=== PATIENT | female | born 1965 | race Caucasian/White ===

== ENCOUNTER → 2019-11-09 12:50 | Outpatient (CLI) | payer MEDICARE, MEDICAID, SELFPAY ==
--- NOTE | 2019-11-09 | DI.RAD.S_ITS ---
PROCEDURE: XR SHOULDER LT MIN 2V INDICATIONS: XR PAIN IN SHOULDER/ HIP TECHNIQUE: 3 views of the shoulder were acquired. COMPARISON: None. FINDINGS: Bones: No fractures or dislocations. No suspicious bony lesions. Visualized ribs appear intact. Soft tissues: No suspicious soft tissue calcifications. IMPRESSION: No trauma found, source of current pain is not seen. Dictated by: Jaime Fraser M.D. on 11/09/2019 at 14:31 Approved by: Jaime Fraser M.D. on 11/09/2019 at 14:31
--- NOTE | 2019-11-09 | DI.RAD.S_ITS ---
PROCEDURE: XR HIP W PEL IF DONE RT 2V COMPARISON: [facility], [place], XR HIP W PEL IF DONE LT 2V, 11/09/2019, 13:12. INDICATIONS: XR PAIN IN SHOULDER/ HIP FINDINGS: Single frontal view of right hip with reference to the pelvis and left hip plain films from today show no trauma, and no evidence of joint effusion or loose body at the right hip. IMPRESSION: Normal right hip. Dictated by: Jaime Frsaer M.D. on 11/09/2019 at 14:25 Approved by: Jaime Fraser M.D. on 11/09/2019 at 14:26
--- NOTE | 2019-11-09 | DI.RAD.S_ITS ---
PROCEDURE: XR SHOULDER RT MIN 2V INDICATIONS: XR PAIN IN SHOULDER/ HIP TECHNIQUE: 3 views of the shoulder were acquired. COMPARISON: None. FINDINGS: Bones: No fractures or dislocations. No suspicious bony lesions. Visualized ribs appear intact. Soft tissues: No suspicious soft tissue calcifications. IMPRESSION: No trauma found, source of pain is not seen. A mild degree of a.c. joint osteoarthritis is incidentally noted. Dictated by: Jaime Fraser M.D. on 11/09/2019 at 14:27 Approved by: Jaime Fraser M.D. on 11/09/2019 at 14:31
--- NOTE | 2019-11-09 | DI.RAD.S_ITS ---
PROCEDURE: XR HIP W PEL IF DONE LT 2V INDICATIONS: XR PAIN IN SHOULDER/ HIP TECHNIQUE: AP pelvis with lateral view(s) of the right hip(s). COMPARISON: None. FINDINGS: Bones: No fractures or dislocations. Pelvic ring appears intact. No suspicious bony lesions. Soft tissues: The visualized bowel gas pattern is normal. No suspicious soft tissue calcifications. IMPRESSION: No trauma found, symmetric minimal degenerative hip joint osteoarthritis is present. Source of asymmetric left-sided predominant pain is not identified. Dictated by: Jaime Fraser M.D. on 11/09/2019 at 14:45 Approved by: Jaime Fraser M.D. on 11/09/2019 at 14:46
--- NOTE | 2019-11-09 | DI.MRI.S_ITS ---
PROCEDURE: MR CERVICAL SPINE WO CON INDICATIONS: Cervicalgia TECHNIQUE: Noncontrast sagittal T1 spin echo and T2 fast spin echo, sagittal STIR, foraminal oblique sagittal T2 fast spin echo, and axial gradient echo or T2 fast spin echo through the cervical spine. COMPARISON: Located Within [facility], , C-SPINE WITHOUT CONTRAST, 08/18/2017, 13:22. FINDINGS: Image quality: Excellent. Alignment and Curvature: There is trace anterolisthesis of C2 on C3, C4 and C5, trace retrolisthesis of C3 on C4, C5-C6, C6 on C7. Bone Marrow: Marrow demonstrates normal overall signal. Spinal Cord: Visualized spinal cord has normal size and signal. No cerebellar tonsillar herniation. Paraspinous Soft Tissues: No paravertebral masses. Prevertebral soft tissues are normal in thickness. Discs: Moderate to severe desiccation is present throughout the cervical spine most severe at C5-6 and C6-7. C2-C3: No disc bulge, spinal stenosis or foraminal narrowing.No interval change. C3-C4: Mild disc bulge with minimal canal narrowing. Moderate bilateral foraminal narrowing, unchanged. Uncovertebral hypertrophy is present. C4-C5: Mild disc bulge with minimal canal narrowing. No neural foraminal narrowing. No interval change. Uncovertebral hypertrophy is present. C5-C6: Mild disc bulge with moderate spinal stenosis. Moderate to severe right and mild left foraminal narrowing with uncovertebral hypertrophy. No interval change. C6-C7: Mild disc bulge with moderate spinal stenosis. Mild bilateral foraminal narrowing with uncovertebral hypertrophy. No interval change. C7-T1: No disc bulge, spinal stenosis or foraminal narrowing. No interval change. IMPRESSION: 1. Multilevel degenerative changes, relatively stable compared to prior exam. 2. Multilevel spinal stenosis most severe at C5-6 and C6-7 secondary to disc bulge. 3. Multilevel foraminal narrowing most severe at C5-6 secondary to uncovertebral hypertrophy. Dictated by: Mariely Mancilla M.D. on 11/09/2019 at 17:10 Approved by: Mariely Mancilla M.D. on 11/09/2019 at 17:14
== END ==
PROVIDERS: Referring Provider Acupuncturist; Visit Provider Acupuncturist
DX: M25.551 Pain in right hip (principal); M25.552 Pain in left hip; M25.511 Pain in right shoulder; M25.512 Pain in left shoulder; M47.812 Spondylosis without myelopathy or radiculopathy, cervical region; M48.02 Spinal stenosis, cervical region; M50.21 Other cervical disc displacement, high cervical region; M19.011 Primary osteoarthritis, right shoulder
CPT/HCPCS: 72141; 73030; 73502

== ENCOUNTER → 2020-01-27 08:57 | Outpatient (CLI) | payer MEDICARE, MEDICAID, SELFPAY ==
--- NOTE | 2020-01-27 | DI.MRI.S_ITS ---
PROCEDURE: MR LUMBAR SPINE WO CON INDICATIONS: low back pain TECHNIQUE: Noncontrast sagittal T1 spin echo and T2 fast echo, sagittal STIR, axial T1 and T2 fast spin echo through the lumbar spine. In cases with scoliosis, additional coronal T2 fast spin echo may be performed. COMPARISON: [facility], MR, L-SPINE WITHOUT CONTRAST, 05/15/2017, 14:10. [facility], MR, L-SPINE WITHOUT CONTRAST, 11/13/2012, 15:16. FINDINGS: Image quality: Excellent. Alignment and Curvature: There is minimal retrolisthesis seen at the L5-S1 level. Bone Marrow: Marrow is of normal overall signal. No acute vertebral body compression fractures. Spinal Cord: Conus medullaris terminates at the L1 level. Visualized cord demonstrates normal signal and size. Paraspinous Soft Tissues: No paravertebral masses. T12-L1: Normal appearance. L1-L2: Normal appearance. L2-L3: No significant abnormality is seen. L3-L4: Mild loss of disc height is seen. Loss of disc signal is seen. Moderate disc bulge is seen, which is eccentric to the left. There is at least moderate facet hypertrophy seen. There is mild to moderate bilateral neural foraminal narrowing seen. Moderate central canal narrowing is seen. The degree of central canal narrowing has progressed compared to 2017. L4-L5: Moderate loss of disc height is seen. Loss of disc signal is seen. Reactive marrow endplate changes are seen which are hypointense on T1-weighted imaging and hyperintense on T2 weighted imaging, which is most consistent with edema (Modic type I changes). Moderate to prominent facet hypertrophy is seen. There is moderate to severe bilateral neural foraminal narrowing seen, right worse than left. There is a degree of compression seen upon the exiting nerve roots. Moderate to severe central canal narrowing is seen. These imaging findings have progressed compared to the prior study. L5-S1: There is a moderate loss of disc height and disc signal seen. Reactive marrow endplate changes are seen, which are hyperintense on T1-weighted and T2-weighted imaging and most consistent with fatty metaplasia (Modic type II changes). There is at least moderate disc bulge seen. A moderate facet hypertrophy is seen. There is moderate bilateral neural foraminal narrowing seen, left worse than right. There is a degree of compression seen upon the exiting left L5 nerve root. No significant central canal narrowing is seen. These imaging findings have progressed compared to the prior study. IMPRESSION: Lower lumbar spine degenerative changes are seen, which have progressed compared to 2017. Dictated by: Abdoul Noble M.D. on 01/27/2020 at 9:17 Approved by: Abdoul Noble M.D. on 01/27/2020 at 9:23
== END ==
PROVIDERS: Referring Provider Acupuncturist; Visit Provider Acupuncturist
DX: M54.5 Low back pain (principal); M47.816 Spondylosis without myelopathy or radiculopathy, lumbar region; M47.817 Spondylosis without myelopathy or radiculopathy, lumbosacral region
CPT/HCPCS: 72148

== ENCOUNTER 2023-05-27 16:43 | Emergency (ER) | payer MEDICARE, MEDICAID, SELFPAY ==
[2023-05-27 16:59] VITALS: BP 125/79; PULSE 75; RESP 15; TEMP 36.6; O2SAT 99; BMI 25.3
== END 2023-05-27 20:39 | disposition left against medical advice (07) ==
PROVIDERS: Emergency Provider Emergency Medicine
DX: M25.562 Pain in left knee (principal)
CPT/HCPCS: 99281

== ENCOUNTER 2023-05-30 10:44 | Emergency (ER) | payer MEDICARE, MEDICAID, SELFPAY ==
[2023-05-30 10:51] VITALS: BP 174/7; PULSE 86; RESP 14; TEMP 36.3; O2SAT 99; BMI 25.3
--- NOTE | 2023-05-30 10:57 | DI.US.S_ITS ---
PROCEDURE: US PERIPH VENOUS LOW EXTREM LT INDICATIONS: PAIN SWELLING TECHNIQUE: Real-time imaging, as well as color and pulse Doppler interrogation, were performed of the lower extremity deep veins from the inguinal ligament to the popliteal fossa, with documentation of the visualized calf veins. COMPARISON: None. FINDINGS: The common femoral, femoral, popliteal, and the visualized calf veins are normally compressible, and free of intraluminal thrombus. Color and pulse Doppler demonstrate normal phasic intraluminal flow. There is normal augmentation response to distal compression maneuver. IMPRESSION: No findings of lower extremity deep venous thrombosis. Dictated by: Mir Le M.D. on 05/30/2023 at 12:26 Approved by: Mir Le M.D. on 05/30/2023 at 12:27
--- NOTE | 2023-05-30 11:09 | ED_ITS ---
HPI - Extremity Injury (Lower) <Joanne Banuelos, [facility] - Last Filed: 05/30/23 13:30> General Chief Complaint: Extremity Injury, Lower Stated Complaint: L/lower leg swelling and pain Time Seen by Provider: 05/30/23 10:57 Source: patient Mode of arrival: Ambulatory History of Present Illness HPI Narrative: This is a 58-year-old female with history of TIAs who is not currently anticoagulated who presents to the emergency department with left-sided swelling and pain which started in the left calf and behind her knee and has progressed down her leg with swelling around her ankle and lower leg. She has been icing and elevating to help with pain, is concerned about a blood clot. Denies any open wound. Sees primary care in [place]. Denies fever chills. Endorses it has been warm and painful to touch. Denies any insect bites or recent yard work. States that her pain started 3 weeks ago and she has been elevating this frequently. States that her prior ?clots? were in her brain and related to TIAs. States that she took Xarelto for many years and stopped taking after she took herself off a couple of years ago. Denies any history of hypertension or cardiac problems. States that her current medication list is updated, does not take baby aspirin. She denies any shortness of breath, chest pain, dizziness, vision changes, or other symptom other than ongoing left knee pain without improvement of her lower left leg edema. Related Data Home Medications Medication Instructions Recorded Confirmed albuterol sulfate 90 mcg/actuation 2 puff inhalation Q4H PRN 05/30/23 05/30/23 aerosol inhaler (Ventolin HFA) wheezing/ sob duloxetine 60 mg capsule,delayed 120 mg PO DAILY 05/30/23 05/30/23 release gabapentin 300 mg capsule 300 mg PO 3XD 05/30/23 05/30/23 olanzapine 10 mg tablet 10 mg PO BEDTIME 05/30/23 05/30/23 prazosin 2 mg capsule 2 mg PO ONCE PM 05/30/23 05/30/23 Allergies Allergy/AdvReac Type Severity Reaction Status Date / Time codeine Allergy Verified 05/30/23 10:55 cyclobenzaprine Allergy Verified 05/30/23 10:55 [From Flexeril] diphenhydramine Allergy Verified 05/30/23 10:55 [From Benadryl] Penicillins Allergy Verified 05/30/23 10:55 Review of Systems <YULISSA Malone - Last Filed: 05/30/23 13:30> Review of Systems ROS Unobtainable: All systems reviewed & are unremarkable except as noted in HPI and below Patient History <YULISSA Malone - Last Filed: 05/30/23 13:30> Medical History TIA (transient ischemic attack) Social History Smoking Status: Current every day smoker Smoking Status: Current every day smoker alcohol intake frequency: other Substance Use Type: does not use Exam <YULISSA Malone - Last Filed: 05/30/23 13:30> Narrative Exam Narrative: Reviewed vitals signs and nursing notes. General: Pleasant, sitting upright, in no acute distress, well groomed, afebrile HEENT: symmetrical facial expressions, moist mucous membranes, neck is supple CV: regular rate and rhythm, warm extremities, pulses 2+ x4 extremities with brisk cap refill Respiratory: normal work of breathing, without tachypnea or hypoxia. MSK: moves all extremities, no weakness, normal tone, ambulatory without deficit, left lower leg edema, no tenderness over the gastrocnemius medially, no erythema or warmth, 1+ pitting edema, circumferential near ankle but not total lower leg, prominent varicose vein Skin: brisk capillary refill, without rash or wound Neuro: clear speech and normal cognition, A&O x3, GCS 15, no focal motor or sensation deficits Initial Vital Signs Initial Vital Signs: Vital Signs Temperature 97.4 F L 05/30/23 10:51 Pulse Rate 86 05/30/23 10:51 Respiratory Rate 14 05/30/23 10:51 Blood Pressure 174/7 H 05/30/23 10:51 Pulse Oximetry 99 05/30/23 10:51 Oxygen Delivery Method Room Air 05/30/23 10:51 <Thom Medina DO - Last Filed: 05/30/23 17:40> Initial Vital Signs Initial Vital Signs: Vital Signs Temperature 97.4 F L 05/30/23 10:51 Pulse Rate 86 05/30/23 10:51 Respiratory Rate 14 05/30/23 10:51 Blood Pressure 174/7 H 05/30/23 10:51 Pulse Oximetry 99 05/30/23 10:51 Oxygen Delivery Method Room Air 05/30/23 10:51 Scores <YULISSA Malone - Last Filed: 05/30/23 13:30> Dana Criteria for DVT Active Cancer (Treatment within 6 months): No Bedridden recently >3 days or major surgery within 4 weeks: No Calf Swelling >3cm compared to other leg: Yes Collateral (nonvericose) superficial veins present: Yes Entire leg swollen: No Localized tenderness along the deep vein system: No Pitting edema, confined to symtomatic leg: Yes Paralysis, paresis, or recent plaster immobilization of ext: No Previously documented DVT: No Alternative dx to DVT as likely or more likely: No Dana criteria for DVT: 3 <Thom Medina DO - Last Filed: 05/30/23 17:40> Dana Criteria for DVT Wells' criteria for DVT: 3 Course <YULISSA Malone - Last Filed: 05/30/23 13:30> Orders Ordered: ED Orders 05/30/23 10:57 US periph venous low extrem lt Stat 05/30/23 11:59 XR knee LT 3V Stat Discontinued Medications Hydrocodone Bitart/Acetaminophen (Hydrocodone/Acet 5/325 Tablet) 1 tab PO NOW ONE Stop: 05/30/23 12:31 Last Admin: 05/30/23 12:40 Dose: 1 tab Documented By: RLS Vital Signs Vital signs: Vital Signs - 8 hr 05/30/23 10:51 05/30/23 13:19 Temperature 97.4 F L Pulse Rate 86 75 Respiratory Rate 14 18 Blood Pressure 174/7 H 113/70 Pulse Oximetry 99 98 Oxygen Delivery Method Room Air Room Air <Thom Medina DO - Last Filed: 05/30/23 17:40> Orders Ordered: ED Orders 05/30/23 10:57 US periph venous low extrem lt Stat 05/30/23 11:59 XR knee LT 3V Stat Discontinued Medications Hydrocodone Bitart/Acetaminophen (Hydrocodone/Acet 5/325 Tablet) 1 tab PO NOW ONE Stop: 05/30/23 12:31 Last Admin: 05/30/23 12:40 Dose: 1 tab Documented By: RLS Vital Signs Vital signs: Vital Signs - 8 hr 05/30/23 10:51 05/30/23 13:19 Temperature 97.4 F L Pulse Rate 86 75 Respiratory Rate 14 18 Blood Pressure 174/7 H 113/70 Pulse Oximetry 99 98 Oxygen Delivery Method Room Air Room Air MDM - Extremity Injury (Lower) <Joanne Banuelos, [facility] - Last Filed: 05/30/23 13:30> Imaging Data US - DVT: Radiologist's Impression: [address] [address] Ultrasound Report Signed Patient: Stephany Tyler MR#: [id number] : 1965 Acct:[id number] Age/Sex: 58 / F Date of Service: 05/30/23 Loc: ED Accession Number: [id number] ?? Procedure: US periph venous low extrem lt Ordering Provider: Thom Medina D.O. PROCEDURE:? US PERIPH VENOUS LOW EXTREM LT ? INDICATIONS:? PAIN SWELLING ? TECHNIQUE:? Real-time imaging, as well as color and pulse Doppler interrogation, were performed of the lower extremity deep veins from the inguinal ligament to the popliteal fossa, with documentation of the visualized calf veins.? ? COMPARISON:? None. ? FINDINGS:? The common femoral, femoral, popliteal, and the visualized calf veins are normally compressible, and free of intraluminal thrombus.? Color and pulse Doppler demonstrate normal phasic intraluminal flow.? There is normal augmentation response to distal compression maneuver.? ? ? IMPRESSION:? No findings of lower extremity deep venous thrombosis. ? ? Dictated by: Mir Le M.D. on 05/30/2023 at 12:26 ? ? Approved by: Mir Le M.D. on 05/30/2023 at 12:27 ? Extremity x-ray #1: Radiologist's Impression: [address] [address] XRay Report Signed Patient: Stephany Tyler MR#: [id number] : 1965 Acct:[id number] Age/Sex: 58 / F Date of Service: 05/30/23 Loc: ED Accession Number: [id number] ?? Procedure: XR knee LT 3V Ordering Provider: Joanne Banuelos PROCEDURE:? XR KNEE LT 3V ? INDICATIONS:? pain ? TECHNIQUE:? 3 views of the knee were acquired.? ? COMPARISON:? None. ? FINDINGS:? ? Bones:? No fractures or dislocations.? No suspicious bony lesions.? ? Soft tissues:? No joint effusion.? No suspicious soft tissue calcifications.? ? ? IMPRESSION:? Normal examination, source of knee pain is not identified. ? ? Dictated by: Jaime Fraser M.D. on 05/30/2023 at 13:06 ? ? Approved by: Jaime Frasre M.D. on 05/30/2023 at 13:07 ? MDM Narrative Medical decision making narrative: Chief Complaint: Left knee pain lower extremity edema Multiple etiologies for patient's complaint considered including, but not limited to: Osteoarthritis, DVT, cellulitis, gout, superficial vein thrombosis, Campbell cyst I have independently reviewed the patient's vital signs and nursing notes as well as prior records if available. Plan: Patient denies any for pain medication, ultrasound for DVT and x-ray for evaluation of osteoarthritis and knee effusion Patient is low risk Wells DVT although reported history of anticoagulant use, patient's ultrasound is negative for DVT, x-ray left knee shows no acute abnormalities, normal exam without joint effusion. Since patient's pain is worse from sitting to standing, with walking, and she has anterior knee pain which radiates throughout the whole joint, this is most likely related to arthritis as there are are no skin changes. Ultrasound DVT was negative, no erythema or skin tenderness, cellulitis is unlikely. No history of gout, patient does not have any range of motion deficits or sensation changes. Patient is recommended to follow up with her PCP for referral to physical therapy and for outpatient MRI as indicated. She was given contact information for [facility] Orthopedics to follow with them for further evaluation if pain is persistent. Social considerations that may affect disposition: none Questions are addressed and there is agreement with the plan and for follow-up. I consulted with the ED attending physician Dr. Medina as needed for higher level of care considerations and they were available for discussion and recommendations regarding plan of care and diagnostic testing. Patient is appropriate for outpatient management. Discharge Plan Departure Patient Disposition: Home Clinical Impression: Acute knee pain Qualifiers: Laterality: left Qualified Code(s): M25.562 - Pain in left knee Instructions: DI for Knee Pain Activity Restrictions/Additional Instructions: *You have been diagnosed with negative ultrasound for DVT and your x-ray does not show any significant abnormalities. There is no DVT in the left leg, and knee pain can be evaluated further at [facility] or with your primary care provider. Please follow-up and ask for a referral to physical therapy and for outpatient imaging which may include an MRI if your pain continues. Continue taking ibuprofen and Tylenol as needed for your pain. Ice it and elevate, these tests do not give any concerning findings about mobility so try to avoid strenuous activity or jarring motions but practice gentle range of motion throughout the day. I hope this starts getting better soon. *What to do: *Please continue to take your regular medications as directed. [ ] New medication prescriptions sent to your pharmacy: [ ] [ ] New medication written as a paper prescription [ x] No new medications given *Please call and schedule follow up with your primary care provider in 2-3 days, at least for an update. Let them know you were seen in the Emergency Department for the above problem. We will electronically transmit a record of today's note if your PCP or specialist is in our system. *If you do not have a primary care provider please contact [phone] to establish care with one of the [facility] primary care providers. *Return to the Emergency Department for worsening symptoms, inability to keep liquids down, fever greater than 101F, chills, or other concerning symptom. Prescriptions: No Action olanzapine 10 mg tablet 10 mg PO BEDTIME gabapentin 300 mg capsule 300 mg PO 3XD albuterol sulfate [Ventolin HFA] 90 mcg/actuation HFA aerosol inhaler 2 puff INHALATION Q4H PRN (Reason: wheezing/ sob) prazosin 2 mg capsule 2 mg PO ONCE PM duloxetine 60 mg capsule,delayed release(DR/EC) 120 mg PO DAILY Referrals: [facility] [Provider Group] [facility] [Outside] Stand Alone Forms: Patient Portal/API <Thom Medina DO - Last Filed: 05/30/23 17:40> [facility] ED Attending Vickiature Attestation: I was immediately available in the department for consultation. Documentation has been reviewed. I agree with assessment and plan.
--- NOTE | 2023-05-30 11:59 | DI.RAD.S_ITS ---
PROCEDURE: XR KNEE LT 3V INDICATIONS: pain TECHNIQUE: 3 views of the knee were acquired. COMPARISON: None. FINDINGS: Bones: No fractures or dislocations. No suspicious bony lesions. Soft tissues: No joint effusion. No suspicious soft tissue calcifications. IMPRESSION: Normal examination, source of knee pain is not identified. Dictated by: Jaime Fraser M.D. on 05/30/2023 at 13:06 Approved by: Jaime Fraser M.D. on 05/30/2023 at 13:07
[2023-05-30] MEDS: HYDROCODONE/ACET 5/325 TABLET 1 TAB PO (12:40)
[2023-05-30 13:19] VITALS: BP 113/70; PULSE 75; RESP 18; O2SAT 98
== END 2023-05-30 13:23 | disposition home or self-care (01) ==
PROVIDERS: Emergency Provider Nurse Practitioner Critical Care Medicine
DX: M25.562 Pain in left knee (principal)
CPT/HCPCS: 73562; 93971; 99283; 99284

== ENCOUNTER → 2023-07-04 13:04 | Outpatient (CLI) | payer MEDICARE, MEDICAID, SELFPAY | PROVIDERS: Referring Provider Internal Medicine Critical Care Medicine; Visit Provider Internal Medicine Critical Care Medicine | DX: J44.9 Chronic obstructive pulmonary disease, unspecified (principal); Z87.891 Personal history of nicotine dependence | CPT/HCPCS: 94060; 94726; 94729 ==